=== PATIENT | male | born 2000 | race Caucasian/White ===

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

== ENCOUNTER 2020-10-16 02:47 | Emergency (ER) | payer MEDICAID ==
[~2020-10-16] VITALS: Ht 175.3 cm; Wt 64.0 kg
[2020-10-16] MEDS ORDERED: ACETAMINOPHEN 325MG TABLET PO STA (03:23)
[2020-10-16] MEDS ORDERED: AZITHROMYCIN 500 MG in DEXT 5% WATER 250 ML IV ONE (03:30)
[2020-10-16] MEDS ORDERED: ALBUTEROL 6.7GM HFA INHALER ORI ONE (03:30)
[2020-10-16] MEDS ORDERED: CEFTRIAXONE 1 G PREMIX 50 ML IV ONE (03:30)
[2020-10-16 04:41] LABS: BASOPHILS % 0.6 % (0.0-2.0); EOSINOPHILS % 4.8 % (0.0-5.0); HEMOGLOBIN. 17.5 g/dL (14.0-18.0); LYMPHOCYTES % 10.9 % (20.0-50.0); MEAN CORPUSCULAR HEMOGLOBIN 29.1 pg (28.0-32.0); MEAN PLATELET VOLUME 8.3 fl (7.4-10.4); MONOCYTES % 7.1 % (2.0-8.0); NEUTROPHILS % 76.6 % (40.0-76.0); PLATELET 229 x1000/uL (130-400); RED CELL DISTRIBUTION WIDTH 13.1 % (11.6-14.6)
[2020-10-16 04:47] LABS: CHLORIDE 102 mEq/L (98-107)
[2020-10-16 04:53] LABS: CLARITY URINE CLEAR (CLEAR); COLOR URINE YELLOW (YELLOW); KETONES URINE 2+ (NEGATIVE); LEUKOCYTE ESTERASE URINE NEGATIVE (NEGATIVE); NITRITE URINE NEGATIVE (NEGATIVE); OCCULT BLOOD URINE NEGATIVE (NEGATIVE); PH URINE 5.5 (4.5-8.0); PROTEIN URINE 1+ (NEGATIVE); SPECIFIC GRAVITY URINE 1.038 (1.005-1.030); UROBILINOGEN URINE 0.2 E.U./dL (0.2-1.0)
[2020-10-16 06:37] VITALS: BP 113/51
[2020-10-16] MEDS ORDERED: PREDNISONE 20MG TABLET PO ONE (06:45)
== END 2020-10-16 07:17 | disposition home or self-care (01) ==
LOC: ER 02:47
DX: R05 Cough (principal); Z20.828 Contact with and (suspected) exposure to other viral communicable diseases; F17.200 Nicotine dependence, unspecified, uncomplicated; Z87.01 Personal history of pneumonia (recurrent); Z98.890 Other specified postprocedural states
CPT/HCPCS: 36415; 71045; 80053; 81003; 83605; 83880; 84145; 84484; 85025; 87040; 87070; 87086; 87430; 87635; 93005; 94640; 96365; 96375; 99285; J0456; J0696; J7060; J7512

== ENCOUNTER 2021-11-16 13:37 | Emergency (ER) | payer MEDICAID ==
[~2021-11-16] VITALS: Ht 175.3 cm; Wt 63.0 kg
[2021-11-16] MEDS ORDERED: ALBU6.7H15 INH (14:28)
[2021-11-16] MEDS ORDERED: P20 MT (14:28)
[2021-11-16 15:01] VITALS: BP 129/75
== END 2021-11-16 15:05 | disposition home or self-care (01) ==
LOC: ER 13:37
DX: U07.1 COVID-19 (principal); J45.901 Unspecified asthma with (acute) exacerbation; F12.10 Cannabis abuse, uncomplicated; Z90.49 Acquired absence of other specified parts of digestive tract
CPT/HCPCS: 93005; 99284; C9803; U0003; U0005

== ENCOUNTER 2022-01-08 21:33 | Emergency (ER) | payer MEDICAID ==
[~2022-01-08] VITALS: Ht 175.3 cm; Wt 69.0 kg
[~2022-01-08 21:33] MED LIST: ALBU6.7H15 INH; P20 MT
[2022-01-08] MEDS ORDERED: ALBU6.7H15 INH (22:03)
[2022-01-08] MEDS: ALBUTEROL (0.083%) 2.5MG/3ML NEB HHN SCH (22:08)
[2022-01-08 22:39] VITALS: BP 131/80
== END 2022-01-08 22:39 | disposition home or self-care (01) ==
LOC: ER 22:26
DX: J45.901 Unspecified asthma with (acute) exacerbation (principal); Z87.01 Personal history of pneumonia (recurrent); F12.10 Cannabis abuse, uncomplicated
CPT/HCPCS: 94640; 99283; Z7610

== ENCOUNTER 2025-01-10 15:35 | Emergency (ER) | payer MEDICAID ==
[~2025-01-10] VITALS: Ht 175.3 cm; Wt 70.0 kg
[2025-01-10 18:04] VITALS: PULSE 93; RESP 20; O2SAT 97
[2025-01-10] MEDS: PREDNISONE 20MG TABLET PO ONE (18:04)
[2025-01-10] MEDS: IPRATROPIUM/ALBUTEROL 0.5-3(2.5)MG/3ML NEB HHN ONE ×2 (18:18→18:19)
[2025-01-10 18:20] VITALS: PULSE 88; RESP 20; O2SAT 99
[2025-01-10] MEDS ORDERED: ALBU18HF2 IH (18:59)
[2025-01-10] MEDS ORDERED: P50 PO (18:59)
[2025-01-10 19:25] VITALS: BP 113/64; PULSE 86; RESP 19; TEMP 37.1; O2SAT 99
[2025-01-10 21:21] LABS: INFLUENZA TYPE A Presumptive Negative (Pres. Neg.); INFLUENZA TYPE B Presumptive Negative (Pres. Neg.)
== END 2025-01-10 19:30 | disposition home or self-care (01) ==
LOC: ER 15:35
DX: J45.901 Unspecified asthma with (acute) exacerbation (principal); F12.90 Cannabis use, unspecified, uncomplicated; Z98.890 Other specified postprocedural states; Z90.49 Acquired absence of other specified parts of digestive tract; Z20.822 Contact with and (suspected) exposure to COVID-19
CPT/HCPCS: 87804 ×2; 71045; 94640; 99284; 87426; J7512; Z7610 ×2; 94070; 94664